=== PATIENT | male | born 1960 | race African-American/Black ===

== ENCOUNTER 2020-06-05 15:31 | Emergency (ER) | payer OTHER | END 2020-06-05 15:56 | LOC: ERS 15:31 | DX: Z20.828 Contact with and (suspected) exposure to other viral communicable diseases (principal); E11.9 Type 2 diabetes mellitus without complications; E78.5 Hyperlipidemia, unspecified; I10 Essential (primary) hypertension; F32.9 Major depressive disorder, single episode, unspecified; K74.60 Unspecified cirrhosis of liver; Z87.891 Personal history of nicotine dependence; Z86.73 Personal history of transient ischemic attack (TIA), and cerebral infarction without residual deficits | CPT/HCPCS: 99283 ==